=== PATIENT | male | born 1985 | race Caucasian/White ===

== ENCOUNTER 2017-04-27 17:58 | Emergency (ER) | payer OTHER ==
[~2017-04-27] VITALS: Ht 175.3 cm; Wt 141.3 kg
[2017-04-27 18:06] VITALS: TEMP 36.7; Ht 175.3 cm; Wt 141.3 kg
--- NOTE | 2017-04-27 18:16 | EMERGENCY ROOM VISIT NOTE ---
ED Visit Note First contact with patient: 18:08 CHIEF COMPLAINT: Foot pain HISTORY OF PRESENT ILLNESS: This 31-year-old male patient presents to the emergency department ambulatory complaining of an injury to the left foot. The patient states that he stepped in twisted the foot approximately 6-7 hours ago. He states he has pain over the top in the side of the foot. He rates his discomfort a 9/10. This pain worsens with weightbearing. He denies any pain to the ankle or knee. He denies any previous injuries to this foot. He denies any numbness or weakness. He did not take anything at home for his pain. REVIEW OF SYSTEMS: GENERAL: A 6 system review of systems was completed with positives and pertinent negatives in the HPI. ALLERGIES: No known drug allergies MEDICATIONS: Lisinopril, Prilosec, Zoloft PMH: No significant past medical history. SOCIAL HISTORY: The patient lives locally with family. PHYSICAL EXAM: Vital Signs: Reviewed Nurse's notes, vital signs stable. GENERAL : This is a 31-year-old male, in no acute distress, but appears in pain, well- developed, well-nourished. MUSCULOSKELETAL: There is no visual deformity of the left foot. There is no erythema or ecchymosis. There is no warmth. There is tenderness over the dorsal and medial aspect of the left foot. There is no significant edema. There is no tenderness over the lateral or medial malleolus. No tenderness of the tib/fib. The range of motion of the ankle is full. There is no tenderness over the plantar fascia. The skin is intact and there are no lacerations or puncture wounds. Dorsalis pedis pulse 2+. Capillary refill less than 2 seconds. RADIOGRAPHIC FINDINGS: LEFT FOOT MIN 3 VIEWS ROUTINE CLINICAL HISTORY: left foot pain, injury trauma. Pain. COMPARISON: None. DISCUSSION: The bones and joint spaces appear intact. There is no evidence of fracture, dislocation or bony disease. There is no evidence for soft tissue swelling. IMPRESSION: Negative study. EMERGENCY DEPARTMENT COURSE: I examined the patient. An X-ray of the left foot was reviewed by myself and radiology and reveals no acute fractures. The patient was placed in a post-op shoe. Conservative measures were discussed. He was instructed to follow-up with his primary care provider for persistent pain. He verbalized understanding and was discharged home in good condition. Blood pressure screening: Patient was found to have an elevated blood pressure and was referred to their primary care provider for recheck and further treatment. Medication reconciliation: I attest that I have personally reviewed the patient 's current medication list. DIAGNOSIS: Foot pain Current/Historical Medications Scheduled Lisinopril (Zestril), 20 MG PO DAILY Omeprazole (Prilosec), 40 MG PO DAILY Sertraline Hcl (Zoloft), 50 MG PO DAILY Allergies Coded Allergies: No Known Allergies (Unverified , 04/27/17) Vital Signs Date Time Temp Pulse Resp B/P (MAP) Pulse Ox O2 Delivery O2 Flow Rate FiO2 04/27/17 18:06 36.7 104 20 153/93 95 Room Air Departure Information Impression Primary Impression: Injury of left foot Dispostion Home / Self-Care Condition GOOD Patient Instructions [facility] Additional Instructions You have been treated in the Emergency Department for a left foot injury. For pain control, you can use the following [id number] medicines (if >12 yo): - Regular strength (325mg/tab) Tylenol (acetaminophen) 2 tabs every 4-6 hours as needed. Do not exceed 12 tablets in a 24 hour period. Avoid taking more than 4 grams (4000 mg) of Tylenol per day. This includes any other sources of acetaminophen you may take on a regular basis. - Regular strength (200 mg/tab) Advil (ibuprofen) 1-2 tabs every 4-6 hours as needed. Do not exceed a dose of 3200 mg per day. If this is a recent injury (<24 hrs), ice can be applied to the area of pain for the first 3 days to help decrease pain and inflammation. Wear the postoperative shoe for the next several days as needed for pain. Return to the Emergency Department if your current symptoms worsen despite treatment course outlined above, or if you develop any of the following symptoms : intractable pain despite aforementioned treatment course or new onset of numbness or tingling of the foot. Problem Qualifiers Primary Impression: Injury of left foot Encounter type: initial encounter Qualified Codes: S99.922A - Unspecified injury of left foot, initial encounter
--- NOTE | 2017-04-27 18:36 | DIAGNOSTIC IMAGING REPORT ---
LEFT FOOT MIN 3 VIEWS ROUTINE CLINICAL HISTORY: left foot pain, injury trauma. Pain. COMPARISON: None. DISCUSSION: The bones and joint spaces appear intact. There is no evidence of fracture, dislocation or bony disease. There is no evidence for soft tissue swelling. IMPRESSION: Negative study. Electronically signed by: Valerio Espinoza M.D. 04/27/2017 6:34 PM Dictated Date/Time: 04/27/2017 6:34 PM
[2017-04-27] MEDS ORDERED: SERT1TAB71 PO (18:45)
[2017-04-27] MEDS ORDERED: OMEP40CA41 PO (18:45)
[2017-04-27] MEDS ORDERED: LISI-725 PO (18:45)
[2017-04-27 19:13] VITALS: BP 140/80; PULSE 76; O2SAT 98
== END 2017-04-27 19:15 | disposition home or self-care (01) ==
LOC: C.EDB 17:59 → C.EDD 19:15
DX: S99.922A Unspecified injury of left foot, initial encounter (principal); X50.1XXA Overexertion from prolonged static or awkward postures, initial encounter